=== PATIENT | female | born 1935 | race Two or more races ===

== ENCOUNTER 2018-12-09 11:38 | Outpatient (CLI) | payer OTHER | END 2018-12-09 11:48 | disposition home or self-care (01) | LOC: SONOGRAMA 11:38 | DX: N60.12 Diffuse cystic mastopathy of left breast (principal); N63.23 Unspecified lump in the left breast, lower outer quadrant ==

== ENCOUNTER 2019-02-07 08:00 | Day surgery (SDC) | payer OTHER ==
[~2019-02-07] VITALS: Ht 149.9 cm; Wt 58.1 kg
[~2019-02-07 08:00] MED LIST: CANDESARTAN CILE8 MG PO; CRESTOR40 MG PO; ISOSORBIDE MONO60 MG PO; LASIX20 MG PO; MAGNESIUM400 MG PO; NEURONTIN300 MG PO; NORVASC5 MG PO; PLAVIX75 MG PO; PROTONIX40 MG PO; SYNTHROID112 MCG PO; VITAMIN D35000 UNIT PO
== END 2019-02-08 16:43 | disposition home or self-care (01) ==
LOC: CIR.AMB 08:00 → EDSTATUS 09:30 → SURG 09:30 → O/R 15:45 → SURH 15:45 → SURG 18:45 → CIR.AMB 02-08 16:43 → SURH 02-08 16:43 → CIR.AMB 03-04 09:30 → SURH 03-04 11:00 → O/R 03-04 11:00 → CIR.AMB 02-08 09:30
DX: C76.1 Malignant neoplasm of thorax (principal); C50.512 Malignant neoplasm of lower-outer quadrant of left female breast; Z17.0 Estrogen receptor positive status [ER+]; I10 Essential (primary) hypertension